=== PATIENT | male | born 1985 | race African-American/Black ===

== ENCOUNTER 2016-11-07 13:35 | Emergency (ER) | payer SELFPAY ==
[~2016-11-07] VITALS: Ht 172.7 cm; Wt 61.2 kg
[2016-11-07 15:24] VITALS: BP 105/59
--- NOTE | 2016-11-07 15:45 | PHYS DOC ---
Past Medical History Past Medical History: No Pertinent History Past Surgical History: No Surgical History Alcohol Use: None Drug Use: None Adult General Chief Complaint Chief Complaint: UPPER EXTREMITY PAIN HPI HPI Patient is a 31 year old male who presents emergency room with sudden onset of numbness and tingling in his left, anterior upper arm and the bicep region that began approximately 1 AM today. Patient denies any radiation of the altered sensation. He denies any headache, visual disturbances, tinnitus. He denies this happening in the past. He denies any history of neuromuscular diseases. He denies any history of neck or shoulder injuries or spinal cord injuries. He states this time, he is asymptomatic. Review of Systems Review of Systems Constitutional: Denies fever or chills [] Eyes: Denies change in visual acuity, redness, or eye pain [] HENT: Denies nasal congestion or sore throat [] Respiratory: Denies cough or shortness of breath [] Cardiovascular: No additional information not addressed in HPI [] GI: Denies abdominal pain, nausea, vomiting, bloody stools or diarrhea [] : Denies dysuria or hematuria [] Musculoskeletal: Denies back pain or joint pain [] Integument: Denies rash or skin lesions [] Neurologic: Denies headache, focal weakness or sensory changes [] Endocrine: Denies polyuria or polydipsia [] Allergies Allergies Allergies Coded Allergies Type Severity Reaction Last Updated Verified No Known Drug Allergies 11/07/16 No Physical Exam Physical Exam Constitutional: Well developed, well nourished, no acute distress, non-toxic appearance. [] HENT: Normocephalic, atraumatic, bilateral external ears normal, oropharynx moist, no oral exudates, nose normal. [] Eyes: PERRLA, EOMI, conjunctiva normal, no discharge. [] Neck: Normal range of motion, no tenderness, supple, no stridor. Cardiovascular:Heart rate regular rhythm, no murmur [] Lungs & Thorax: Bilateral breath sounds clear to auscultation [] Abdomen: Bowel sounds normal, soft, no tenderness, no masses, no pulsatile masses. [] Skin: Warm, dry, no erythema, no rash. Back: No tenderness, no CVA tenderness. [] Extremities: No tenderness, no cyanosis, no clubbing, ROM intact, no edema. There are no dystrophic changes to the patient's upper extremities. There is no tenderness region. Strength is equal and symmetric bilaterally. Neurologic: Alert and oriented X 3, cranial nerves II through XII are intact. Patient is able perform rapid alternating movement and [id number] without difficulty. Romberg is negative pronator drift. Patient is a steady, unaided gait. Psychologic: Affect normal, judgement normal, mood normal. [] Current Patient Data Vital Signs Vital Signs Date Time Temp Pulse Resp B/P Pulse Ox O2 Delivery O2 Flow Rate FiO2 11/07/16 15:24 97.4 83 18 98 Room Air 97.4 EKG EKG [] Radiology/Procedures Radiology/Procedures [] Course & Med Decision Making Course & Med Decision Making Pertinent Labs and Imaging studies reviewed. (See chart for details) [] Dragon Disclaimer Dragon Disclaimer This electronic medical record was generated, in whole or in part, using a voice recognition dictation system. Departure Departure Impression: Primary Impression: Paresthesia Disposition: 01 HOME, SELF-CARE Condition: GOOD Referrals: NO PCP (PCP) Patient Instructions: Paresthesia, [id number] Additional Instructions: 1. Review the discharge instructions provided for self-care and reasons to return to the emergency department. 2. A pamphlet is provided to you for assistance in finding a primary care doctor to address your medical concerns and follow-up. You should call for follow-up appointment if the symptoms do reoccur. EVELYN WAITE Nov 07, 2016 15:45
== END 2016-11-07 16:05 | disposition home or self-care (01) ==
LOC: ER 13:35
DX: R20.2 Paresthesia of skin (principal); R20.0 Anesthesia of skin
CPT/HCPCS: 99281

== ENCOUNTER 2019-04-13 19:37 | Emergency (ER) | payer SELFPAY ==
[~2019-04-13] VITALS: Ht 172.7 cm; Wt 61.2 kg
[2019-04-13 19:44] VITALS: BP 105/59
[2019-04-13] MEDS ORDERED: CLOT15CR4 TP (19:55)
--- NOTE | 2019-04-13 19:55 | PHYS DOC ---
Past Medical History Past Medical History: No Pertinent History Past Surgical History: No Surgical History Alcohol Use: None Drug Use: None Adult General Chief Complaint Chief Complaint: SKIN RASH/ABSCESS HPI HPI Patient is a 34 year old AA male who presents to the emergency department with complaints around, raised, patch to his left forearm for the last week. Patient denies any itching, fever, drainage, or warmth at the site. 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 He denies any pain at this time. Review of Systems Review of Systems Constitutional: Denies fever or chills [] Integument: See history of present illness Neurologic: Denies headache, focal weakness or sensory changes [] Allergies Allergies Allergies Coded Allergies Type Severity Reaction Last Updated Verified No Known Drug Allergies 11/07/16 No Physical Exam Physical Exam Constitutional: Well developed, well nourished, no acute distress, non-toxic appearance. [] HENT: Normocephalic, atraumatic, bilateral external ears normal, nose normal. [] Eyes: conjunctiva normal, no discharge. [] Lungs & Thorax: Respirations even and unlabored, no retractions, no respiratory distress Skin: Warm, dry, no erythema; 2 cm circular raised rash noted to left forearm consistent with ringworm Extremities: No tenderness, no cyanosis, ROM intact, no edema. [] Neurologic: Alert and oriented X 3, no focal deficits noted. [] Psychologic: Affect normal, judgement normal, mood normal. [] Current Patient Data Vital Signs Vital Signs Date Time Temp Pulse Resp B/P (MAP) Pulse Ox O2 Delivery O2 Flow Rate FiO2 04/13/19 19:44 98.0 81 18 105/59 (74) 98 Room Air 98.0 EKG EKG [] Radiology/Procedures Radiology/Procedures [] Course & Med Decision Making Course & Med Decision Making Pertinent Labs and Imaging studies reviewed. (See chart for details) [] Dragon Disclaimer Dragon Disclaimer This electronic medical record was generated, in whole or in part, using a voice recognition dictation system. Departure Departure Impression: Primary Impression: Ringworm, body Disposition: HOME, SELF-CARE Condition: STABLE Referrals: NO PCP (PCP) Patient Instructions: Body Ringworm Additional Instructions: Fill the prescription and use as directed. Follow-up with your primary care doctor if symptoms persist, return to the ER if symptoms worsen. Scripts Clotrimazole (CLOTRIMAZOLE) 15 Gm Cream..g. 1 ROSIO TP BID for 28 Days, #30 GM 0 Refills Prov: BECCA MONACO APRN 04/13/19 BECCA MONACO APRN Apr 13, 2019 19:55
== END 2019-04-13 20:02 | disposition home or self-care (01) ==
LOC: ER 19:37
DX: B35.4 Tinea corporis (principal)
CPT/HCPCS: 99283

== ENCOUNTER 2020-04-03 14:39 | Emergency (ER) | payer SELFPAY ==
[~2020-04-03] VITALS: Ht 172.7 cm; Wt 65.0 kg
[~2020-04-03 14:39] MED LIST: CLOT15CR23 TP
[2020-04-03 15:30] LABS: BASO % 1 % (0-3); EOS # 0.1 x10^3/uL (0.0-0.7); EOS % 3 % (0-3); HEMATOCRIT 38.6 % (39.0-53.0); HEMOGLOBIN 13.2 g/dL (13.0-17.5); LYMPH # 1.3 x10^3/uL (1.0-4.8); LYMPH % 28 % (24-48); MEAN CORPUSCULAR HEMOGLOBIN 34 pg (25-35); MEAN CORPUSCULAR HGB CONC 34 g/dL (31-37); MEAN CORPUSCULAR VOLUME 98 fL (79-100); MONO # 0.3 x10^3/uL (0.0-1.1); MONO % 7 % (0-9); NEUT # 2.8 x10^3/uL (1.8-7.7); NEUT % 62 % (31-73); PLATELET COUNT 223 x10^3/uL (140-400); RED BLOOD COUNT 3.93 x10^6/uL (4.30-5.70); RED CELL DISTRIBUTION WIDTH 13.8 % (11.5-14.5); WHITE BLOOD COUNT 4.5 x10^3/uL (4.0-11.0)
[2020-04-03] MEDS ORDERED: ONDANSETRON PF 4 MG/2 ML VIAL. IVP ONE (15:30)
[2020-04-03 15:39] LABS: CALCIUM 7.8 mg/dL (8.5-10.1); CREATININE 1.2 mg/dL (0.7-1.3); GFR 82.4; POTASSIUM 3.6 mmol/L (3.5-5.1)
[2020-04-03 15:45] LABS: ALBUMIN 3.3 g/dL (3.4-5.0); ALBUMIN/GLOBULIN RATIO 1.1 (1.0-1.7); TOTAL BILIRUBIN 0.3 mg/dL (0.2-1.0); TOTAL PROTEIN 6.4 g/dL (6.4-8.2)
--- NOTE | 2020-04-03 15:56 | PHYS DOC ---
Past Medical History Past Medical History: No Pertinent History Past Surgical History: No Surgical History Smoking Status: Current Every Day Smoker Alcohol Use: Occasionally Drug Use: None General Adult EDM: Chief Complaint: DRUG ABUSE HPI: HPI: Patient is a 35 year old male who presents with complaints of nausea and vomiting after smoking a cigarette at approximately 1330 today. Patient states he became nauseated immediately after smoking the cigarette and vomited 3 or 4 times. Patient reports his vomitus was clear liquid and denies any blood or dark coffee-ground substances in his vomit. Patient denies drug use or alcohol use, but is unsure if something might have been in his cigarette such as drugs or other illicit substances as he was given the cigarette by a friend earlier in the day. Patient denies fever or chills, throat pain, swollen glands, congestion, cough, shortness of breath, chest pain, abdominal pain, changes in bowel or bladder habits, extremity pain, skin rashes, numbness, muscle aches, vision changes or tingling. Patient states he only feels nauseated at this time. Patient denies anyone else in his home with the same symptoms. Patient denies any recent life changes, suicidal or homicidal ideations, depression or anxiety. Review of Systems: Review of Systems: Constitutional: Denies fever or chills, denies drug use. Eyes: Denies change in visual acuity. HENT: Denies nasal congestion or sore throat. Respiratory: Denies cough or shortness of breath. Cardiovascular: Denies chest pain or edema. GI: Complains of nausea with vomiting prior to arrival. Denies abdominal pain, bloody stools or diarrhea. : Denies dysuria. Musculoskeletal: Denies back pain or joint pain. Integument: Denies rash. Neurologic: Denies headache, focal weakness or sensory changes. Endocrine: Denies polyuria or polydipsia. Lymphatic: Denies swollen glands. Psychiatric: Denies depression or anxiety. Heart Score: Risk Factors: Risk Factors: DM, Current or recent (<one month) smoker, HTN, HLP, family history of CAD, obesity. Risk Scores: Score 0 - 3: 2.5% MACE over next 6 weeks - Discharge Home Score 4 - 6: 20.3% MACE over next 6 weeks - Admit for Clinical Observation Score 7 - 10: 72.7% MACE over next 6 weeks - Early Invasive Strategies Family History: Family History: No family history significant to this ER visit. Current Medications: Patient denies taking home prescription medications. Current Medications Medications (Trade) Dose Ordered Sig/[facility] Start Time Stop Time Status Last Admin Dose Admin Ondansetron HCl (Zofran) 4 mg 1X ONCE 04/03/20 15:30 04/03/20 15:31 DC 04/03/20 15:34 4 MG Allergies: Allergies: Allergies Coded Allergies Type Severity Reaction Last Updated Verified No Known Drug Allergies 11/07/16 No Physical Exam: PE: Constitutional: Well developed, well nourished, no acute distress, non-toxic appearance. Patient has normal affect HENT: Normocephalic, atraumatic, bilateral external ears normal, oropharynx moist, no oral exudates, nose normal. Eyes: PERRLA, EOMI, conjunctiva normal, no discharge. Bilateral pupils 4 mm Neck: Normal range of motion, no tenderness, supple, no stridor. Cardiovascular:Heart rate regular rhythm, no murmur. Heart sounds S1-S2 without abnormalities noted per auscultation. Lungs & Thorax: Bilateral breath sounds clear to auscultation all lung farr. Abdomen: Bowel sounds normal, soft, no tenderness, no masses, no pulsatile masses. Patient does however complain of nausea at this time. Skin: Warm, dry, no erythema, no rash. Back: No tenderness, no CVA tenderness. Extremities: No tenderness, no cyanosis, no clubbing, ROM intact, no edema. Neurologic: Alert and oriented X 3, normal motor function, normal sensory function, no focal deficits noted. Normal affect. Psychologic: Affect normal, judgement normal, mood normal. Current Patient Data: Labs: Laboratory Tests Test 04/03/20 15:00 White Blood Count 4.5 x10^3/uL (4.0-11.0) Red Blood Count 3.93 x10^6/uL (4.30-5.70) L Hemoglobin 13.2 g/dL (13.0-17.5) Hematocrit 38.6 % (39.0-53.0) L Mean Corpuscular Volume 98 fL (79-100) Mean Corpuscular Hemoglobin 34 pg (25-35) Mean Corpuscular Hemoglobin Concent 34 g/dL (31-37) Red Cell Distribution Width 13.8 % (11.5-14.5) Platelet Count 223 x10^3/uL (140-400) Neutrophils (%) (Auto) 62 % (31-73) Lymphocytes (%) (Auto) 28 % (24-48) Monocytes (%) (Auto) 7 % (0-9) Eosinophils (%) (Auto) 3 % (0-3) Basophils (%) (Auto) 1 % (0-3) Neutrophils # (Auto) 2.8 x10^3/uL (1.8-7.7) Lymphocytes # (Auto) 1.3 x10^3/uL (1.0-4.8) Monocytes # (Auto) 0.3 x10^3/uL (0.0-1.1) Eosinophils # (Auto) 0.1 x10^3/uL (0.0-0.7) Basophils # (Auto) 0.0 x10^3/uL (0.0-0.2) Sodium Level 142 mmol/L (136-145) Potassium Level 3.6 mmol/L (3.5-5.1) Chloride Level 106 mmol/L (98-107) Carbon Dioxide Level 28 mmol/L (21-32) Anion Gap 8 (6-14) Blood Urea Nitrogen 14 mg/dL (8-26) Creatinine 1.2 mg/dL (0.7-1.3) Estimated GFR (Cockcroft-Gault) 82.4 BUN/Creatinine Ratio 12 (6-20) Glucose Level 100 mg/dL (70-99) H Calcium Level 7.8 mg/dL (8.5-10.1) L Total Bilirubin Pending Aspartate Amino Transferase (AST) Pending Alanine Aminotransferase (ALT) Pending Alkaline Phosphatase Pending Total Protein Pending Albumin Pending Albumin/Globulin Ratio Pending Laboratory Tests 04/03/20 15:00 Laboratory Tests 04/03/20 15:00 Vital Signs: Vital Signs Date Time Temp Pulse Resp B/P (MAP) Pulse Ox O2 Delivery O2 Flow Rate FiO2 04/03/20 14:43 99.0 80 16 99/55 (70) 94 Room Air 99.0 EKG: EKG: [] Radiology/Procedures: Radiology/Procedures: [] Course & Med Decision Making: Course & Med Decision Making Pertinent Labs and Imaging studies reviewed. (See chart for details) 35-year-old male patient presents to the emergency department with complaints of immediate nausea after smoking a cigarette that was given to him by a friend at approximately 1330 today. Patient states he vomited between 3 and 4 times with clear vomitus containing some food particles. Patient denied blood or dark coffee-ground looking material in his vomitus. Patient states he has not vo mited for the past half an hour. Patient states he only feels nauseated at this time. Patient is concerned that something might have been laced in the cigarette he was given. Patient admits to smoking cigarettes approximately 1 pack a day for the past 20 years. Patient denies recent drug use. Patient states he used to smoke marijuana when he was in high school. Patient states he has an occasional beer with friends on the weekend. Patient's vital signs were reviewed and remained stable throughout the emergency department stay. Lab work was obtained and was non-concerning. His urine drug screen did show methamphetamines and marijuana. Patient was asked about these findings and patient replied with he was not sure what was put in the cigarette he was given but it tasted funny. Patient's nausea was resolved after giving a liter of fluid and 4 mg of Zofran in the ED. Patient was counseled for smoking cessation and drug abuse. Home instructions were reviewed with the patient, patient was amenable to these home instructions and had no further questions. Patient was discharged home self-care with return to ER questions and concerns. Shiv Disclaimer: Shiv Disclaimer: This electronic medical record was generated, in whole or in part, using a voice recognition dictation system. Departure Departure Impression: Primary Impression: Nausea Additional Impression: Drug abuse Disposition: HOME, SELF-CARE Condition: GOOD Referrals: NO PCP (PCP) Patient Instructions: Nausea, Adult Additional Instructions: Please stop smoking, please do not smoke cigarettes containing illicit substances. Take prescribed medication as needed for nausea. Return to the ER if symptoms return or other concerns. Scripts Ondansetron (ONDANSETRON ODT) 4 Mg Tab.rapdis 1 TAB PO PRN Q6-8HRS, #16 TAB 0 Refills Prov: BALDEMAR CAMPOS LANDON 04/03/20 Justicifation of Admission Dx: Justifications for Admission: Justification of Admission Dx: N/A BALDEMAR CAMPOS APRN Apr 03, 2020 15:56
[2020-04-03] MEDS ORDERED: IV NORMAL SALINE 1000ML BAG 1,000 ML IV ONE (16:15)
[2020-04-03 17:44] VITALS: BP 105/70
[2020-04-03 17:53] LABS: BILIRUBIN,URINE SMALL (NEG); CLARITY,URINE CLEAR; COLOR,URINE YELLOW; NITRITE,URINE NEGATIVE (NEG); PROTEIN,URINE NEGATIVE (NEG-TRACE)
[2020-04-03 18:00] LABS: BARBITURATES NEG (NEG); BENZODIAZEPINES NEG (NEG); CANNABINOIDS POS (NEG); COCAINE NEG (NEG); METHADONE NEG (NEG); OPIATES NEG (NEG); PHENCYCLIDINE POS (NEG)
[2020-04-03 18:01] LABS: BACTERIA,URINE 0 /HPF (0-FEW); RBC,URINE 0 /HPF (0-2); SQUAMOUS EPITHELIAL CELL,UR OCC /LPF
[2020-04-03 18:08] LABS: AMPHETAMINE/METHAMPHETAMINE POS (NEG)
[2020-04-03] MEDS ORDERED: ONDA4TAB12 PO (19:55)
== END 2020-04-03 20:01 | disposition home or self-care (01) ==
LOC: ER 14:39
DX: R11.2 Nausea with vomiting, unspecified (principal); F15.10 Other stimulant abuse, uncomplicated; F12.10 Cannabis abuse, uncomplicated; F17.210 Nicotine dependence, cigarettes, uncomplicated
CPT/HCPCS: 36415; 80053; 80307; 81001; 85025; 96361; 96374; 99283; J2405; J7030

== ENCOUNTER 2020-07-26 00:05 | Emergency (ER) | payer SELFPAY ==
[~2020-07-26] VITALS: Ht 170.2 cm; Wt 60.0 kg
[~2020-07-26 00:05] MED LIST changes: +ONDA4TAB12 PO
[2020-07-26 00:10] VITALS: BP 118/72
--- NOTE | 2020-07-26 01:32 | PHYS DOC ---
Past Medical History Past Medical History: No Pertinent History Past Surgical History: No Surgical History Smoking Status: Current Every Day Smoker Alcohol Use: Occasionally Drug Use: None General Adult EDM: Chief Complaint: MULTIPLE COMPLAINTS HPI: HPI: Patient is a 35 year old male with no past medical history currently on no medications presents complaining of right-sided rib pain. Patient states rib pain is been going on for the last 25 minutes. Patient asleep upon entry into the room. Patient very drowsy wakes up answers questions then falls back asle ep. Patient tells me he is homeless and has no place to stay. Patient is in no acute distress. While patient is asleep palpation of his ribs elicits no pain. Review of Systems: Review of Systems: Constitutional: Denies fever or chills. [] Eyes: Denies change in visual acuity. [] HENT: Denies nasal congestion or sore throat. [] Respiratory: Denies cough or shortness of breath. [] Cardiovascular: Denies chest pain or edema. [] GI: Denies abdominal pain, nausea, vomiting, bloody stools or diarrhea. [] : Denies dysuria. [] Musculoskeletal: Denies back pain or joint pain. [Positive right-sided rib pain] Integument: Denies rash. [] Neurologic: Denies headache, focal weakness or sensory changes. [] Endocrine: Denies polyuria or polydipsia. [] Lymphatic: Denies swollen glands. [] Psychiatric: Denies depression or anxiety. [] Heart Score: Risk Factors: Risk Factors: DM, Current or recent (<one month) smoker, HTN, HLP, family history of CAD, obesity. Risk Scores: Score 0 - 3: 2.5% MACE over next 6 weeks - Discharge Home Score 4 - 6: 20.3% MACE over next 6 weeks - Admit for Clinical Observation Score 7 - 10: 72.7% MACE over next 6 weeks - Early Invasive Strategies Allergies: Allergies: Allergies Coded Allergies Type Severity Reaction Last Updated Verified No Known Drug Allergies 11/07/16 No Physical Exam: PE: Constitutional: Well developed, well nourished, no acute distress, non-toxic appearance. [] HENT: Normocephalic, atraumatic, bilateral external ears normal, oropharynx moist, no oral exudates, nose normal. [] Eyes: PERRLA, EOMI, conjunctiva normal, no discharge. [] Neck: Normal range of motion, no tenderness, supple, no stridor. [] Cardiovascular:Heart rate regular rhythm, no murmur [] Lungs & Thorax: Bilateral breath sounds clear to auscultation [right-sided lateral rib pain just lateral to the liver no crepitus no deformity] Abdomen: Bowel sounds normal, soft, no tenderness, no masses, no pulsatile masses. [] Skin: Warm, dry, no erythema, no rash. [] Back: No tenderness, no CVA tenderness. [] Extremities: No tenderness, no cyanosis, no clubbing, ROM intact, no edema. [] Neurologic: Alert and oriented X 3, normal motor function, normal sensory function, no focal deficits noted. [] Psychologic: Affect normal, judgement normal, mood normal. [] EKG: EKG: [] Radiology/Procedures: Radiology/Procedures: [] Course & Med Decision Making: Course & Med Decision Making Pertinent Labs and Imaging studies reviewed. (See chart for details) [] Dragotto Disclaimer: Shiv Disclaimer: This electronic medical record was generated, in whole or in part, using a voice recognition dictation system. Departure Departure Impression: Primary Impression: Rib pain Additional Impression: Homeless Disposition: 01 DC HOME SELF CARE/HOMELESS Condition: STABLE Referrals: NO PCP (PCP) Patient Instructions: Musculoskeletal Pain NYDIA JOYCE DO Jul 26, 2020 01:32
== END 2020-07-26 01:45 | disposition home or self-care (01) ==
LOC: ER 00:05
DX: R07.81 Pleurodynia (principal); Z59.0 Homelessness; F17.200 Nicotine dependence, unspecified, uncomplicated
CPT/HCPCS: 99281

== ENCOUNTER 2021-04-07 20:11 | Emergency (ER) | payer SELFPAY ==
[~2021-04-07] VITALS: Ht 172.7 cm; Wt 65.9 kg
[2021-04-07 22:21] VITALS: BP 125/74
--- NOTE | 2021-04-07 22:54 | RAD ---
Exam: Right hand 3 views. Abdomen 2 views INDICATION: Constipation, pain and swelling of the right hand TECHNIQUE: Frontal, lateral and oblique views of the right hand. Upright and supine views of the abdo men Comparisons: None FINDINGS: Hand: Bone mineralization is normal. No acute or healed fractures. Soft tissues are unremarkable. Joint spa chinyere are well-maintained. ABDOMEN: Air and stool are noted throughout the colon to level the rectum in a nonobstructive bowel gas patter n. Moderate amount stool noted in the colon. Visualized osseous structures are unremarkable IMPRESSION: 1. Moderate amount of stool noted in the colon. 2. No acute osseous abnormality of the right hand Electronically signed by: Ran Nichols MD (04/07/2021 10:51 PM) REGULO
[2021-04-07] MEDS ORDERED: POLY119P4 PO (23:01)
--- NOTE | 2021-04-07 23:02 | ED.ADGEN ---
Past Medical History Past Medical History: No Pertinent History Past Surgical History: No Surgical History Smoking Status: Current Every Day Smoker Alcohol Use: None Drug Use: None General Adult EDM: Chief Complaint: CONSTIPATION HPI: HPI: Patient is a 36 year old AA male who presents to emergency department via EMS with complaints of constipation and lateral right hand pain. Patient states he had a small bowel movement today, he denies any blood in his stool. Patient states his abdomen feels full like he needs to poop. He denies any nausea, vomiting, diarrhea, rectal pain, rectal bleeding. Patient denies any fever, cough, shortness of breath, dysuria, hematuria, or difficulty voiding. He states he has also had some pain in his right hand. Patient currently rates his abdominal pain a 2 out of 10 on the pain scale, he denies any alleviating factors. Review of Systems: Review of Systems: Complete ROS is negative unless otherwise noted in HPI. Allergies: Allergies: Allergies Coded Allergies Type Severity Reaction Last Updated Verified No Known Drug Allergies 11/07/16 No Physical Exam: PE: See Above Constitutional: Well developed, well nourished, no acute distress, non-toxic appearance. [] HENT: Normocephalic, atraumatic, bilateral external ears normal, nose normal. [] Eyes: PERRLA, EOMI, conjunctiva normal, no discharge. [] Neck: Normal range of motion, no stridor. [] Cardiovascular:Heart rate regular rhythm Lungs & Thorax: Respirations even and unlabored, no retractions, no respiratory distress Abdomen: soft, no tenderness Skin: Warm, dry, no erythema, no rash. [] Extremities: Right hand: Lateral tenderness palpation without crepitus or obvious deformity, no cyanosis, ROM intact, no edema. [] Neurologic: Alert and oriented X 3, no focal deficits noted. [] Psychologic: Affect normal, judgement normal, mood normal. [] Current Patient Data: Vital Signs: Vital Signs Date Time Temp Pulse Resp B/P (MAP) Pulse Ox O2 Delivery O2 Flow Rate FiO2 04/07/21 22:21 97.5 69 16 125/74 (87) 97 Room Air 97.5 EKG: EKG: [] Heart Score: C/O Chest Pain: No Radiology/Procedures: Radiology/Procedures: PROCEDURE: HAND RIGHT 3V Exam: Right hand 3 views. Abdomen 2 views INDICATION: Constipation, pain and swelling of the right hand TECHNIQUE: Frontal, lateral and oblique views of the right hand. Upright and supine views of the abdomen Comparisons: None FINDINGS: Hand: Bone mineralization is normal. No acute or healed fractures. Soft tissues are unremarkable. Joint spaces are well-maintained. ABDOMEN: Air and stool are noted throughout the colon to level the rectum in a nonobstructive bowel gas pattern. Moderate amount stool noted in the colon. Visualized osseous structures are unremarkable IMPRESSION: 1. Moderate amount of stool noted in the colon. 2. No acute osseous abnormality of the right hand [] Course & Med Decision Making: Course & Med Decision Making Pertinent Labs and Imaging studies reviewed. (See chart for details) [] Dragon Disclaimer: COVEGA Disclaimer: This electronic medical record was generated, in whole or in part, using a voice recognition dictation system. Departure Departure Impression: Primary Impression: Acute constipation Additional Impression: Pain in right hand Disposition: 01 HOME / SELF CARE / HOMELESS Condition: STABLE Referrals: NO PCP (PCP) Patient Instructions: Constipation, Adult, Knkk-uw-[id number], Hand Contusion, [id number] Additional Instructions: Fill prescription(s) and use as directed. Increase clear fluids and fiber in your diet. Recommend application of ice, elevation, and rest of your painful hand. You can take Tylenol or ibuprofen as needed for your pain. Follow-up with your primary care doctor next week for reevaluation, return to the ER if your symptoms worsen or fever develops.. Scripts Polyethylene Glycol 3350 (MIRALAX) 119 Gm Powder 17 GM PO BID for constipation for 3 Days, #255 GM 0 Refills Drink 1 capful in 8 oz of water twice daily for 5 days then once a day to keep stools regular Prov: BECCA MONACO APRN 04/07/21 Problem Qualifiers BECCA MONACO APRN Apr 07, 2021 23:02
== END 2021-04-07 23:08 | disposition home or self-care (01) ==
LOC: ER 20:11
DX: K59.00 Constipation, unspecified (principal); M79.641 Pain in right hand; F17.200 Nicotine dependence, unspecified, uncomplicated
CPT/HCPCS: 73130; 74021; 99284

== ENCOUNTER 2022-01-29 21:51 | Emergency (ER) | payer SELFPAY ==
[~2022-01-29] VITALS: Ht 180.3 cm; Wt 72.7 kg
[~2022-01-29 21:51] MED LIST changes: +POLY119P4 PO
[2022-01-29] MEDS ORDERED: IV NORMAL SALINE 1000ML BAG 1,000 ML IV ONE (22:00)
[2022-01-29 22:21] LABS: BASO % 1 % (0-3); EOS # 0.1 x10^3/uL (0.0-0.7); EOS % 1 % (0-3); HEMATOCRIT 27.7 % (39.0-53.0); LYMPH # 0.9 x10^3/uL (1.0-4.8); LYMPH % 24 % (24-48); MEAN CORPUSCULAR HEMOGLOBIN 33 pg (25-35); MEAN CORPUSCULAR HGB CONC 33 g/dL (31-37); MEAN CORPUSCULAR VOLUME 102 fL (79-100); MONO # 0.2 x10^3/uL (0.0-1.1); MONO % 5 % (0-9); NEUT # 2.8 x10^3/uL (1.8-7.7); NEUT % 70 % (31-73); PLATELET COUNT 138 x10^3/uL (140-400); RED BLOOD COUNT 2.71 x10^6/uL (4.30-5.70); RED CELL DISTRIBUTION WIDTH 14.1 % (11.5-14.5)
[2022-01-29 23:25] LABS: CALCIUM 8.7 mg/dL (8.5-10.1); CREATININE 1.2 mg/dL (0.7-1.3); POTASSIUM 3.7 mmol/L (3.5-5.1)
[2022-01-29 23:31] LABS: ALBUMIN 3.4 g/dL (3.4-5.0); ALBUMIN/GLOBULIN RATIO 0.9 (1.0-1.7); MAGNESIUM 1.9 mg/dL (1.8-2.4); TOTAL BILIRUBIN 0.5 mg/dL (0.2-1.0); TOTAL PROTEIN 7.3 g/dL (6.4-8.2)
[2022-01-30 03:13] LABS: BARBITURATES NEG (NEG); BENZODIAZEPINES NEG (NEG); CANNABINOIDS POS (NEG); COCAINE NEG (NEG); METHADONE NEG (NEG); OPIATES NEG (NEG); PHENCYCLIDINE NEG (NEG)
[2022-01-30 03:14] LABS: AMPHETAMINE/METHAMPHETAMINE POS (NEG)
[2022-01-30 03:16] LABS: BACTERIA,URINE 0 /HPF (0-FEW); HYALINE CASTS, URINE OCCASIONAL /HPF; RBC,URINE RARE /HPF (0-2); WBC,URINE RARE /HPF (0-4)
[2022-01-30 03:30] VITALS: BP 121/58
--- NOTE | 2022-01-30 03:34 | PHYS DOC ---
Past Medical History Past Medical History: No Pertinent History Past Surgical History: No Surgical History Smoking Status: Current Every Day Smoker Alcohol Use: Rarely Drug Use: None General Adult EDM: Chief Complaint: PSYCH EVALUATION HPI: HPI: 36-year-old male presents via EMS with report of being found on the side of the road reporting that he was acting abnormally. Patient reports sensation of bugs crawling all over him. Patient does report smoking a self rolled cigarettes that patient is concerned might have been laced with a another unknown drug. Patient reports he thinks it might have been PCP. Denies any suicidal or homicidal ideation. Review of Systems: Review of Systems: Constitutional: Denies fever or chills Eyes: Denies redness or eye pain HENT: Denies nasal congestion or sore throat Respiratory: Denies cough or shortness of breath Cardiovascular: Denies chest pain or palpitations GI: Denies abdominal pain, nausea, or vomiting : Denies dysuria or hematuria Musculoskeletal: Denies back pain or joint pain Integument: Denies rash or skin lesions Neurologic: Denies headache, focal weakness or sensory changes; reports sensation that "bugs are crawling all over him " Complete systems were reviewed and found to be within normal limits, except as documented in this note. Heart Score: C/O Chest Pain: N/A Current Medications: Current Medications Medications (Trade) Dose Ordered Sig/Bob Start Time Stop Time Status Last Admin Dose Admin Lorazepam (Ativan Inj) 1 mg 1X ONCE 01/29/22 22:15 01/29/22 22:16 DC 01/29/22 22:15 1 MG Sodium Chloride 1,000 ml @ 1,000 mls/hr 1X ONCE 01/29/22 22:00 01/29/22 23:00 DC 01/29/22 22:00 1,000 MLS/HR Allergies: Allergies: Allergies Coded Allergies Type Severity Reaction Last Updated Verified No Known Drug Allergies 01/29/22 No Physical Exam: PE: Constitutional: Well developed, well nourished, no acute distress, non-toxic appearance HENT: Normocephalic, atraumatic Eyes: PERRL, EOMI, conjunctiva normal, no discharge Neck: Normal range of motion, no tenderness, supple Lungs & Thorax: No respiratory distress, equal chest rise and fall Abdomen: Soft, no tenderness Skin: Warm, dry, no erythema, no rash Extremities: No tenderness, ROM intact, no edema Neurologic: Alert and oriented X 3, normal motor function, normal sensory function, no focal deficits noted Psychologic: Affect anxious, judgment normal Current Patient Data: Labs: Laboratory Tests Test 01/29/22 22:15 01/29/22 23:05 01/30/22 02:55 White Blood Count 4.0 x10^3/uL (4.0-11.0) Red Blood Count 2.71 x10^6/uL (4.30-5.70) L Hemoglobin 9.0 g/dL (13.0-17.5) L Hematocrit 27.7 % (39.0-53.0) L Mean Corpuscular Volume 102 fL (79-100) H Mean Corpuscular Hemoglobin 33 pg (25-35) Mean Corpuscular Hemoglobin Concent 33 g/dL (31-37) Red Cell Distribution Width 14.1 % (11.5-14.5) Platelet Count 138 x10^3/uL (140-400) L Neutrophils (%) (Auto) 70 % (31-73) Lymphocytes (%) (Auto) 24 % (24-48) Monocytes (%) (Auto) 5 % (0-9) Eosinophils (%) (Auto) 1 % (0-3) Basophils (%) (Auto) 1 % (0-3) Neutrophils # (Auto) 2.8 x10^3/uL (1.8-7.7) Lymphocytes # (Auto) 0.9 x10^3/uL (1.0-4.8) L Monocytes # (Auto) 0.2 x10^3/uL (0.0-1.1) Eosinophils # (Auto) 0.1 x10^3/uL (0.0-0.7) Basophils # (Auto) 0.0 x10^3/uL (0.0-0.2) Sodium Level 137 mmol/L (136-145) Potassium Level 3.7 mmol/L (3.5-5.1) Chloride Level 102 mmol/L (98-107) Carbon Dioxide Level 24 mmol/L (21-32) Anion Gap 11 (6-14) Blood Urea Nitrogen 17 mg/dL (8-26) Creatinine 1.2 mg/dL (0.7-1.3) Estimated GFR (Cockcroft-Gault) 82.0 BUN/Creatinine Ratio 14 (6-20) Glucose Level 75 mg/dL (70-99) Calcium Level 8.7 mg/dL (8.5-10.1) Magnesium Level 1.9 mg/dL (1.8-2.4) Total Bilirubin 0.5 mg/dL (0.2-1.0) Aspartate Amino Transferase (AST) 21 U/L (15-37) Alanine Aminotransferase (ALT) 19 U/L (16-63) Alkaline Phosphatase 77 U/L (46-116) Total Protein 7.3 g/dL (6.4-8.2) Albumin 3.4 g/dL (3.4-5.0) Albumin/Globulin Ratio 0.9 (1.0-1.7) L Ethyl Alcohol Level < 10 mg/dL (0-10) Urine Collection Type Unknown Urine Color (Auto) Light yellow Urine Turbidity Clear Urine pH (Auto) 5.0 (<5.0-8.0) Urine Specific [place] 1.020 (1.000-1.030) Urine Protein (Auto) Negative mg/dL (Negative) Urine Glucose (Auto)(UA) Negative mg/dL (Negative) Urine Ketones (Auto) Negative mg/dL (Negative) Urine Blood (Auto) Negative (Negative) Urine Nitrite Negative (Negative) Urine Bilirubin (Auto) Negative (Negative) Urine Urobilinogen (Auto) Normal mg/dL (Normal) Urine Leukocyte Esterase (Auto) Negative (Negative) Urine RBC Rare /HPF (0-2) Urine WBC Rare /HPF (0-4) Urine Squamous Epithelial Cells Few /LPF Urine Bacteria 0 /HPF (0-FEW) Urine Hyaline Casts Occasional /HPF Urine Mucus Slight /LPF Urine Opiates Screen Neg (NEG) Urine Methadone Screen Neg (NEG) Urine Barbiturates Neg (NEG) Urine Phencyclidine Screen Neg (NEG) Urine Amphetamine/Methamphetamine Pos (NEG) Urine Benzodiazepines Screen Neg (NEG) Urine Cocaine Screen Neg (NEG) Urine Cannabinoids Screen Pos (NEG) Urine Ethyl Alcohol Neg (NEG) Laboratory Tests 01/29/22 22:15 Laboratory Tests 01/29/22 23:05 Vital Signs: Vital Signs Date Time Temp Pulse Resp B/P (MAP) Pulse Ox O2 Delivery O2 Flow Rate FiO2 01/30/22 03:00 66 20 102/71 (81) 97 Room Air 01/29/22 22:22 98.0 98.0 EKG: EKG: [] Radiology/Procedures: Radiology/Procedures: [] Course & Med Decision Making: Course & Med Decision Making Pertinent Lab studies reviewed. (See chart for details) Patient presents with concern for possible drug overdose. Patient denies drug use but reports he recently smoked a cigarette that he is concerned might have been laced with something. Labs obtained and posted to chart. UDS positive for methamphetamines. IV fluid hydration given. Patient given Ativan secondary to agitation. Patient sleeping in department and reports interval improvement of symptoms after being monitored for several hours. Denies suicidal or homicidal ideation. Patient stable for discharge with outpatient follow-up with PCP/drug rehab. Drug rehab resources provided. Discussed findings and plan with patient, who acknowledges understanding and agreement. Shiv Disclaimer: Shiv Disclaimer: This electronic medical record was generated, in whole or in part, using a voice recognition dictation system. Departure Departure Impression: Primary Impression: Methamphetamine abuse Disposition: 01 HOME / SELF CARE / HOMELESS Condition: STABLE Referrals: NO PCP (PCP) Patient Instructions: Alcohol and Drug Addiction, Finding Treatment, Drug Abuse, FAQs, Methamphetamine Abuse, Complications Additional Instructions: Please call [facility] at to seek help for your mental health and/or drug/alcohol abuse. BALDEMAR WOODY DO January 30, 2022 03:34
== END 2022-01-30 03:51 | disposition home or self-care (01) ==
LOC: ER 21:51
DX: F15.10 Other stimulant abuse, uncomplicated (principal); F17.200 Nicotine dependence, unspecified, uncomplicated
CPT/HCPCS: 36415; 80053; 80307; 81001; 83735; 85025; 96361; 96374; 99285; G0480; J2060; J7030